=== PATIENT | male | born 1995 | race Caucasian/White ===

== ENCOUNTER 2023-01-16 14:06 | Emergency (ER) | payer OTHER ==
[2023-01-16 14:13] VITALS: RESP 16; TEMP 98.2
[2023-01-16] MEDS ORDERED: HYDROcodone/APAP 5-325MG 1 EACH TAB PO STA (14:23)
[2023-01-16] MEDS ORDERED: DIPH,PERTUS(ACELL)TETVAC-LF 0.5 ML VIAL IM ONE (14:23)
[2023-01-16] MEDS ORDERED: LIDOCAINE 1% INJ 10MG/ML (30 ML VIAL-PF) SQ ONE (14:23)
--- NOTE | 2023-01-16 14:28 | ED ---
General Adult HPI - General Chief complaint: Trauma Stated complaint: Finger Laceration Time Seen by Provider: 01/16/23 14:20 Source: patient, RN notes reviewed, old records reviewed Mode of arrival: ambulatory Limitations: no limitations - History of Present Illness Initial comments: Nontoxic 27-year-old male presents to the emergency room sent from urgent care for laceration to his right ring finger after getting it caught in a vice at work today. Denies any other injuries. Sensation is intact. -: hour(s) Location: right, upper extremity (ring finger) Severity scale (1-10): 8 Quality: constant Consistency: constant Improves with: none Associated Symptoms: denies other symptoms Treatments Prior to Arrival: other (sent by urgent care) - Related Data Previous Rx's Medication Instructions Recorded Cephalexin [Keflex] 500 mg PO Q6HR #40 cap 01/16/23 Ibuprofen [Motrin] 600 mg PO Q8HR PRN #30 tab 01/16/23 Allergies Allergy/AdvReac Type Severity Reaction Status Date / Time No Known Allergies Allergy Verified 01/16/23 14:13 Review of Systems ROS Statement: Those systems with pertinent positive or pertinent negative responses have been documented in the HPI. ROS Other: All systems not noted in ROS Statement are negative. Past Medical History Past Medical History: No Reported History History of Any Multi-Drug Resistant Organisms: None Reported Past Surgical History: No Surgical Hx Reported Past Psychological History: No Psychological Hx Reported Smoking Status: Never smoker Past Alcohol Use History: None Reported Past Drug Use History: Marijuana General Exam Limitations: no limitations General appearance: alert, in no apparent distress Head exam: Present: atraumatic Eye exam: Present: normal appearance. Absent: scleral icterus, conjunctival injection, periorbital swelling Neck exam: Present: full ROM. Absent: tenderness, meningismus Respiratory exam: Absent: respiratory distress, accessory muscle use Cardiovascular Exam: Present: regular rate Right Hand Wrist exam: Present: tenderness, laceration (2cm laceration through nailbed) Vascular: Present: normal capillary refill, radial pulse Neurological exam: Present: alert, oriented X3 Psychiatric exam: Present: normal affect, normal mood Skin exam: Present: warm, dry, normal color. Absent: cyanosis, diaphoretic, petechiae, pallor Course Vital Signs 01/16/23 01/16/23 14:09 16:52 Temperature 98.2 F Pulse Rate 73 71 Respiratory 16 16 Rate Blood Pressure 114/71 128/72 O2 Sat by Pulse 97 97 Oximetry Procedures - Laceration Laceration #1 Consent Obtained: verbal consent Indication: laceration Site: upper extremity (finger ring) Description: irregular Depth: simple, single layer Anesthesia Technique: nerve block (digital block) Type of Sutures: nylon Size of Sutures: 4-0 Number of Sutures: 10 Technique: simple, interrupted Patient Tolerated Procedure: well Medical Decision Making - Medical Decision Making Wound was explored and copiously irrigated with 500 mL of normal saline. Dorsal and palmar surface lacerations repaired after approximation with ten sutures after digital block. No complications. Capillary refill less than 2 seconds. Patient does have good flexion and extension. X-ray interpreted by me shows a distal tuft fracture of the right ring finger. Radiologist's interpretation soft tissue injury with fracture involving the tuft of the distal phalanx and displaced fracture involving the body of the distal phalanx fourth digit. Patient's tetanus shot was updated. He was given [place], bacitracin and Keflex in the emergency room. Finger was splinted with a nonadhering bulky dressing. Patient discharged on antibiotics with follow up with hand surgery. He is agreeable to this plan of care. Case discussed with Dr. Robles. Was pt. sent in by a medical professional or institution ([facility], [employer], urgent care, hospital, or senior care...) When possible be specific @ -[facility] Did you speak to anyone other than the patient for history (EMS, parent, family, police, friend...)? What history was obtained from this source @ -[No] Did you review nursing and triage notes (agree or disagree)? Why? @ -[I reviewed and agree with nursing and triage notes] Were old charts reviewed (outside hosp., previous admission, EMS record, old EKG, old radiological studies, urgent care reports/EKG's, senior care records)? Report findings @ -[No old charts were reviewed] Differential Diagnosis (chest pain, altered mental status, abdominal pain women, abdominal pain men, vaginal bleeding, weakness, fever, dyspnea, syncope, headache, dizziness, GI bleed, back pain, seizure, CVA, palpatations, mental health, musculoskeletal)? @ -fracture, dislocation, partial amputation, laceration, foreign body EKG interpreted by me (3pts min.). @ n/a X-rays interpreted by me (1pt min.). @ yes as above CT interpreted by me (1pt min.). @ -[None done] U/S interpreted by me (1pt. min.). @ -[None done] What testing was considered but not performed or refused? (CT, X-rays, U/S, labs)? Why? @ -[None] What meds were considered but not given or refused? Why? @ -[None] Did you discuss the management of the patient with other professionals (professionals i.e. , PA, [employer], lab, RT, psych nurse, social media coordinator, educational/development assistant, teacher, space operations officer, case management coordinator)? Give summary @ -[No] Was smoking cessation discussed for >3mins.? @ -[No] Was critical care preformed (if so, how long)? @ -[No] Were there social determinants of health that impacted care today? How? (Homelessness, low income, unemployed, alcoholism, drug addiction, transportation, low edu. Level, literacy, decrease access to med. care, prison, rehab)? @ -[No] Was there de-escalation of care discussed even if they declined (Discuss DNR or withdrawal of care, Hospice)? DNR status @ -[No] What co-morbidities impacted this encounter? (DM, HTN, Smoking, COPD, CAD, Cancer, CVA, ARF, Chemo, Hep., AIDS, mental health diagnosis, sleep apnea, morbid obesity)? @ -[None] Was patient admitted / discharged? Hospital course, mention meds given and route, prescriptions, significant lab abnormalities, going to OR and other pertinent info. @ -discharged Undiagnosed new problem with uncertain prognosis? @ -[No] Drug Therapy requiring intensive monitoring for toxicity (Heparin, Nitro, Insulin, Cardizem)? @ -[No] Were any procedures done? @ suture repair Diagnosis/symptom? laceration, open distal phalnx fracture Acute, or Chronic, or Acute on Chronic acute Uncomplicated (without systemic symptoms) or Complicated (systemic symptoms)? @ complicated laceration with fracture Side effects of treatment? @ -[No] Exacerbation, Progression, or Severe Exacerbation? @ -[No] Poses a threat to life or bodily function? How? (Chest pain, [place], [place], pneumonia, PE, COPD, DKA, ARF, appy, cholecystitis, CVA, Diverticulitis, Homicidal, Suicidal, threat to staff... and all critical care pts) @ -[No] Disposition Clinical Impression: Finger laceration, Open fracture of tuft of distal phalanx of finger Disposition: HOME SELF-CARE Condition: Good Instructions (If sedation given, give patient instructions): Laceration (ED), Finger Fracture (ED) Additional Instructions: Keep wound clean, dry and covered until seen by hand surgeon next week. Change dressing once a day. Take antibiotics as prescribed. Return to the emergency room with any new or concerning symptoms including increased pain, signs of infection including drainage, redness or fever. Prescriptions: Cephalexin [Keflex] 500 mg PO Q6HR #40 cap Ibuprofen [Motrin] 600 mg PO Q8HR PRN #30 tab PRN Reason: Pain Is patient prescribed a controlled substance at d/c from ED?: No Referrals: Mahogany Mcfarlane DO [Primary Care Provider] - 1-2 days Donna Bedolla DO [Doctor of Osteopathic Medicine] - 1-2 days Time of Disposition: 16:14
--- NOTE | 2023-01-16 15:45 | XR ---
EXAMINATION TYPE: XR finger RT DATE OF EXAM: 01/16/2023 COMPARISON: NONE HISTORY: Pain TECHNIQUE: Three views are submitted. FINDINGS: There is partial amputation of the soft tissues of distal phalanx. There is a radiopaque density niyah cent to the body of the distal phalanx along the radial aspect and volar aspect of the soft tissues c ould represent small foreign body. The fracture involving the tuft of the distal phalanx and a displa jackelyn fracture involving the body of the distal phalanx with angulation. IMPRESSION: 1. Soft tissue amputation with fracture involving the tuft of the distal phalanx and displaced fractu re involving the body of the distal phalanx fourth digit. 2. See above for possible foreign body along the subcutaneous volar tissues adjacent to the distal ph alanx.
[2023-01-16] MEDS ORDERED: CEPHALEXIN 500 MG CAP PO STA (16:14)
[2023-01-16] MEDS ORDERED: BACITRACIN OINT 1 EACH PACKET TOPICAL ONE (16:14)
[2023-01-16] MEDS ORDERED: ACET/COD 300 MG/30 MG STARTER PACK 6 TAB BTL PO STA (16:14)
[2023-01-16 16:54] VITALS: BP 128/72; PULSE 71
== END 2023-01-16 16:53 | disposition home or self-care (01) ==
LOC: EC 14:06
DX: S62.634B Displaced fracture of distal phalanx of right ring finger, initial encounter for open fracture (principal); F12.90 Cannabis use, unspecified, uncomplicated; Z23 Encounter for immunization; W31.89XA Contact with other specified machinery, initial encounter; Y99.0 Civilian activity done for income or pay
CPT/HCPCS: 73140; 90715; 99283; 12001; 90471; J2001